=== PATIENT | male | born 1960 | race Caucasian/White ===

== ENCOUNTER 2020-02-27 00:59 | Outpatient (CLI) | payer MEDICARE, BC, SELFPAY ==
[2020-02-27 20:51] LABS: SARS-CoV-2 RNA PCR Negative
== END 2020-02-27 01:00 | disposition home or self-care (01) ==
LOC: ANHCOVIDDT 00:59
PROVIDERS: PCP Internal Medicine; Visit Provider Urology
DX: Z01.812 Encounter for preprocedural laboratory examination (principal); Z20.828 Contact with and (suspected) exposure to other viral communicable diseases
CPT/HCPCS: 87635; C9803; U0003

== ENCOUNTER 2020-02-29 01:27 | Day surgery (SDC) | payer MEDICARE, BC, SELFPAY ==
[2020-02-20 09:30] VITALS: BMI 33.7
--- NOTE | 2020-02-26 07:46 | P.HP_ITS ---
H&P: HPI History of Present Illness Date/Time: 02/26/20 07:46 Chief complaint: BPH Narrative: Jose R Hill is a 60 year old male with long-standing prostatism dating back approximately 10 years. Voiding symptoms have recently become refractory to tamsulosin. Cystoscopy shows lateral lobe hyperplasia without a significant median lobe. Rectal exam, by VITOR, demonstrates a 30-35 g prostate. After discussion of therapeutic options including TURP, Urolift and other minimally invasive procedures he elects for a Urolift. He is aware of the risk of this including, but not limited to, failure to correct his voiding symptoms, postoperative bleeding /urinary retention, adverse cardiopulmonary events. Review of Systems Cardiovascular: Cardiovascular: Denies chest pain, Denies lightheadedness, Denies palpitations and Denies dyspnea Respiratory: Respiratory: Denies dyspnea Gastrointestinal: Gastrointestinal: Denies diarrhea, Denies nausea and Denies vomiting Genitourinary: Genitourinary: Denies hematuria and Denies dysuria Endocrine: Endocrine: Denies palpitations PMFSH Social History Social History Smoking packs per day: 1 Smoking cigarettes per day: 20.0 Years smoked: 15 Smoking pack-years: 15.00 Smoking status: Former smoker Tobacco type: cigarettes Additional smoking assessment comments: QUIT 09/2018 Spiritual care concerns: No Meds Home Medications and Allergies Home Medications Medication Instructions Recorded Confirmed Type atorvastatin 40 mg PO DAILY 02/20/20 02/20/20 History carisoprodol 350 mg PO Q8H 02/20/20 02/20/20 History clopidogrel 75 mg PO DAILY 02/20/20 02/20/20 History dulaglutide [Trulicity] 1.5 mg SUBCUT WEEKLY 02/20/20 02/20/20 History fentanyl 100 mcg TRANSDERMAL Q72H 02/20/20 02/20/20 History glimepiride 4 mg PO BID 02/20/20 02/20/20 History hydrochlorothiazide 12.5 mg PO DAILY 02/20/20 02/20/20 History insulin glargine [Basaglar KwikPen 15 unit SUBCUT QPM 02/20/20 02/20/20 History U-100 Insulin] lisinopril 20 mg PO DAILY 02/20/20 02/20/20 History metformin 1,000 mg PO BID 02/20/20 02/20/20 History metoprolol tartrate 50 mg PO BID 02/20/20 02/20/20 History multivitamin 1 tablet PO DAILY 02/20/20 02/20/20 History nabumetone 750 mg PO BID 02/20/20 02/20/20 History oxycodone 10 mg PO Q4H 02/20/20 02/20/20 History tamsulosin 0.4 mg PO BID 02/20/20 02/20/20 History Allergies Allergy/AdvReac Type Severity Reaction Status Date / Time No Known Allergies Allergy Verified 02/20/20 09:31 Exam Const: General: no acute distress Resp: Effort & Inspection: normal respiratory effort GI: Inspection: non-distended GI Palp: No abdominal tenderness and No Guarding due to palpation present (GI) Auscultation: normal bowel sounds Assessment and Plan Assessment and plan (1) BPH loc w urin obs/LUTS: Code(s): N40.1 - Benign prostatic hyperplasia with lower urinary tract symptoms Status: Acute Assessment and Plan: * UroLift
[2020-02-29 09:50] VITALS: BP 119/78; PULSE 87; RESP 20; TEMP 36.1; O2SAT 94
[2020-02-29] MEDS: LACTATED RINGERS 1,000 ML 30 ML IV CONT (09:50)
--- NOTE | 2020-02-29 09:50 | WPDANESEPPF ---
Anes - Initial Pre Proc Eval Procedure: Operation Date: 02/29/20 11:30 Proposed Procedures p Urolift - Chalino Dacosta MD Date/Time: 02/29/20 09:50 Surgeon: Chalino Dacosta MD Pre Op Diagnosis: BPH Patient Data Age: 60 Gender: M Height: 5 ft 10 in Weight: 106.59 kg Allergies Allergy/AdvReac Type Severity Reaction Status Date / Time No Known Allergies Allergy Verified 02/20/20 09:31 Home Medications Medication Instructions Recorded Confirmed Type atorvastatin 40 mg PO DAILY 02/20/20 02/20/20 History carisoprodol 350 mg PO Q8H 02/20/20 02/20/20 History clopidogrel 75 mg PO DAILY 02/20/20 02/20/20 History dulaglutide [Trulicity] 1.5 mg SUBCUT WEEKLY 02/20/20 02/20/20 History fentanyl 100 mcg TRANSDERMAL Q72H 02/20/20 02/20/20 History glimepiride 4 mg PO BID 02/20/20 02/20/20 History hydrochlorothiazide 12.5 mg PO DAILY 02/20/20 02/20/20 History insulin glargine [Basaglar KwikPen 15 unit SUBCUT QPM 02/20/20 02/20/20 History U-100 Insulin] lisinopril 20 mg PO DAILY 02/20/20 02/20/20 History metformin 1,000 mg PO BID 02/20/20 02/20/20 History metoprolol tartrate 50 mg PO BID 02/20/20 02/20/20 History multivitamin 1 tablet PO DAILY 02/20/20 02/20/20 History nabumetone 750 mg PO BID 02/20/20 02/20/20 History oxycodone 10 mg PO Q4H 02/20/20 02/20/20 History tamsulosin 0.4 mg PO BID 02/20/20 02/20/20 History Patient hx anesthesia problems: none Family hx anesthesia problems: none PMFSH Past Medical History Medical History (Updated 02/29/20 @ 09:51 by Armond Grace MD) CAD (coronary artery disease) Diabetes Hyperlipidemia Hypertension BRENNON (obstructive sleep apnea) Social History Social History Smoking packs per day: 1 Smoking cigarettes per day: 20.0 Years smoked: 15 Smoking pack-years: 15.00 Smoking status: Former smoker Tobacco type: cigarettes Additional smoking assessment comments: QUIT 09/2018 Spiritual care concerns: No Anes - Eval Final PreProcedure Day of Procedure 02/29/20 09:50 Patient weight: obese Heart: regular rate and rhythm Lungs: decreased breath sounds Airway: Mallampati scale class II Neurological: alert and oriented Last oral intake: >/= 8 hours ASA classification: III Emergent: no Anesthetic plan: proceed Anesthesia type and monitoring: general GIVS and standard monitoring Informed Consent: The patient's anesthetic plan and its attendant risks and benefits were discussed with the patient/family/POA. Questions were solicited and answers provided to the satisfaction of the patient/family/POA.
[2020-02-29 09:58] LABS: Glucose Point of Care 177 (65-105)
[2020-02-29 10:05] VITALS: PULSE 80
[2020-02-29] MEDS: METOPROLOL TARTRATE INJ 5 MG/5 ML VIAL IV PUSH (10:05)
--- NOTE | 2020-02-29 11:28 | WPDHPUPDATE1 ---
History and Physical Update Update Date/Time: 02/29/20 11:28 History and Physical has been reviewed, including an updated exam of the patient. There are NO changes in the patient's condition. Risks, benefits, and alternatives have been discussed and questions answered. Patient agrees to proceed with procedure.
[2020-02-29] MEDS: ceFAZolin 2 GM/D5W 50 ML 2 GM/50 ML BAG IVPB (11:30)
[2020-02-29] MEDS: LIDOCAINE HCL 2% GEL UROJET 10 ML PKG MUCOUS MEM (11:41)
--- NOTE | 2020-02-29 11:58 | P.OP_ITS ---
Procedure Note - Detailed Date of procedure: 02/29/20 Pre-op diagnosis: BPH Post-op diagnosis: same Procedure performed: UroLift Description of procedure: The patient was prepped and draped in a routine fashion after the uneventful induction of a general LMA anesthetic. A 20F cystoscope was inserted into the bladder. The cystoscopy bridge was replaced with a UroLift delivery device. The first treatment site was the patient's right side approximately 1.5cm distal to the bladder neck. The distal tip of the delivery device was then angled laterally approximately 20 degrees at this position to compress the lateral lobe. The trigger was pulled, thereby deploying a needle containing the implant through the prostate. The needle was then retracted, allowing one end of the implant to be delivered to the capsular surface of the prostate. The implant was then tensioned to assure capsular seating and removal of slack monofilament. The device was then angled back toward midline and slowly advanced proximally (typically 3 to 4 mm) until cystoscopic verification of the monofilament being centered in the delivery bay. The urethral end piece was then affixed to the monofilament thereby tailoring the size of the implant. Excess filament was then severed. The delivery device was then re-advanced into the bladder. The delivery device was then replaced with cystoscope and bridge and the implant location and opening effect was conf irmed cystoscopically. The same procedure was then repeated on the left side, and two additional implants were delivered just proximal to the verumontanum, again one on right and one on left side of the prostate, following the same technique. Therefore, a total of 4 implants were delivered. A final cystoscopy was conducted first to inspect the location and state of each implant and second, to confirm the presence of a continuous anterior channel was present through the prostatic urethra with irrigation flow turned off. The bladder was then filled with 150 cc irrigation fluid to assist the patient in void trial after the procedure, and all instruments were removed. At this point the cystoscope was removed and the patient was taken to the PACU in good condition. Anesthesia: MAC Surgeon: Chalino Dacosta MD Estimated blood loss (mL): 0 Drains: No Packing: No Pathology: none sent Complications: No immediate complications Condition: stable Disposition: PACU
[2020-02-29 12:00] VITALS: BP 104/77; PULSE 67; RESP 12; O2SAT 97
[2020-02-29 12:30] VITALS: BP 110/72; PULSE 64; RESP 12
[2020-02-29 12:50] VITALS: BP 112/75; PULSE 65; RESP 12
[2020-02-29] MEDS: oxyCODONE HCL (*CRX) 5 MG TAB IR PO (12:51)
--- NOTE | 2020-02-29 13:06 | SUR.PHASEII ---
pPT URINATED AT 1230. 200 ML
== END 2020-02-29 13:00 | disposition home or self-care (01) ==
PROVIDERS: PCP Internal Medicine; Visit Provider Urology
PROC: 0T7D8DZ Dilation of Urethra with Intraluminal Device, Via Natural or Artificial Opening Endoscopic (ICD-10-PCS; CPT 52441; principal; 2020-02-29 11:30)
DX: N40.1 Benign prostatic hyperplasia with lower urinary tract symptoms (principal); Z79.02 Long term (current) use of antithrombotics/antiplatelets; Z79.4 Long term (current) use of insulin; Z79.84 Long term (current) use of oral hypoglycemic drugs; I25.10 Atherosclerotic heart disease of native coronary artery without angina pectoris; E11.9 Type 2 diabetes mellitus without complications; E78.5 Hyperlipidemia, unspecified; I10 Essential (primary) hypertension; G47.33 Obstructive sleep apnea (adult) (pediatric); Z87.891 Personal history of nicotine dependence; E66.9 Obesity, unspecified; Z68.32 Body mass index [BMI] 32.0-32.9, adult
CPT/HCPCS: C9740; A9270; J0690; J2250; J2704; J3010; J7120; L8699

== ENCOUNTER 2020-11-20 09:18 | Outpatient (CLI) | payer MEDICARE, BC, SELFPAY ==
--- NOTE | 2020-11-20 11:15 | NEURO_ITS ---
Impression: # Complains of numbness of hands. # Left moderate Carpal Tunnel Syndrome. # Right mild evolving Carpal Tunnel Syndrome. # No ulnar neuropathy. # Normal needle/EMG exam. Nerve Conduction Studies Anti Sensory Summary Table Stim Site NR Peak (ms) P-T Amp (?V) Site1 Site2 Delta-P (ms) Dist (cm) Mike (m/s) Left Median Anti Sensory (2-3nd Digit) Wrist 4.2 48.2 Wrist 2-3nd Digit 4.2 14.0 33 Wrist 4.8 34.7 Wrist 2-3nd Digit 4.2 14.0 33 Right Median Anti Sensory (2-3nd Digit) Wrist 3.7 67.1 Wrist 2-3nd Digit 3.7 14.0 38 Wrist 3.6 38.5 Wrist 2-3nd Digit 3.7 14.0 38 Left Radial Anti Sensory (Base 1st Digit) Wrist 2.1 10.8 Wrist Base 1st Digit 2.1 0.0 Right Radial Anti Sensory (Base 1st Digit) Wrist 2.1 14.5 Wrist Base 1st Digit 2.1 0.0 Left Ulnar Anti Sensory (5th Digit) Wrist 2.3 63.7 Wrist 5th Digit 2.3 14.0 61 Right Ulnar Anti Sensory (5th Digit) Wrist 2.5 68.7 Wrist 5th Digit 2.5 14.0 56 Motor Summary Table Stim Site NR Onset (ms) O-P Amp (mV) Site1 Site2 Delta-0 (ms) Dist (cm) Mike (m/s) Left Median Motor (Abd Poll Brev) Wrist 6.1 1.0 Elbow Wrist 5.5 32.0 58 Elbow 11.6 1.3 Right Median Motor (Abd Poll Brev) Wrist 4.0 3.0 Elbow Wrist 6.0 31.0 52 Elbow 10.0 4.2 Left Ulnar Motor (Abd Dig Minimi) Wrist 2.5 5.1 A Elbow Wrist 5.5 30.0 55 A Elbow 8.0 4.1 Right Ulnar Motor (Abd Dig Minimi) Wrist 2.7 5.1 A Elbow Wrist 5.4 29.0 54 A Elbow 8.1 4.1 F Wave Studies NR F-Lat (ms) L-R F-Lat (ms) Left Median (Mrkrs) (Abd Poll Brev) 34.38 1.52 Right Median (Mrkrs) (Abd Poll Brev) 32.86 1.52 Left Ulnar (Mrkrs) (Abd Dig Min) 30.08 1.54 Right Ulnar (Mrkrs) (Abd Dig Min) 31.62 1.54 EMG Side Muscle Nerve Root Ins Act Fibs Amp Dur Recrt Comment Right 1stDorInt Ulnar C8-T1 Nml Nml Nml Nml Nml Right Ext Indicis Radial (Post Int) C7-8 Nml Nml Nml Nml Nml Right Ext Digitorum Radial (Post Int) C7-8 Nml Nml Nml Nml Nml Right BrachioRad Radial C5-6 Nml Nml Nml Nml Nml Right PronatorTeres Median C6-7 Nml Nml Nml Nml Nml Right Abd Poll Brev Median C8-T1 Nml Nml Nml Nml Nml Left 1stDorInt Ulnar C8-T1 Nml Nml Nml Nml Nml Left Ext Indicis Radial (Post Int) C7-8 Nml Nml Nml Nml Nml Left Ext Digitorum Radial (Post Int) C7-8 Nml Nml Nml Nml Nml Left BrachioRad Radial C5-6 Nml Nml Nml Nml Nml Left PronatorTeres Median C6-7 Nml Nml Nml Nml Nml Left Abd Poll Brev Median C8-T1 Nml Nml Nml Nml Nml Right ABD Dig Min Ulnar C8-T1 Nml Nml Nml Nml Nml Left ABD Dig Min Ulnar C8-T1 Nml Nml Nml Nml Nml MTDD
== END 2020-11-20 09:19 | disposition home or self-care (01) ==
LOC: ANHNEURO 09:21
PROVIDERS: PCP Internal Medicine; Visit Provider Psychiatry & Neurology Neurology
DX: R20.0 Anesthesia of skin (principal); G56.03 Carpal tunnel syndrome, bilateral upper limbs
CPT/HCPCS: 95886; 95911

== ENCOUNTER 2021-01-17 14:04 | Outpatient (CLI) | payer MEDICARE, BC, SELFPAY ==
[2021-01-17 14:39] LABS: Anion Gap 13 mmol/L (8-16); Blood Urea Nitrogen 12 mg/dL (9-20); Calcium 9.6 mg/dL (8.4-10.2); Carbon Dioxide 28 mmol/L (22-30); Chloride 100 mmol/L (98-107); Estimated Glomerular Filt Rate > 60; Glucose 197 mg/dL (65-110); Potassium 4.5 mmol/L (3.4-5.0); Sodium 141 mmol/L (137-145)
== END 2021-01-17 14:05 | disposition home or self-care (01) ==
LOC: ANHSURGERY 14:09
PROVIDERS: Anesthesiology; PCP Internal Medicine; Visit Provider Orthopaedic Surgery
DX: E11.9 Type 2 diabetes mellitus without complications (principal); Z01.818 Encounter for other preprocedural examination
CPT/HCPCS: 36415; 80048

== ENCOUNTER 2021-01-23 01:17 | Day surgery (SDC) | payer MEDICARE, BC, SELFPAY ==
[2021-01-17 09:30] VITALS: BMI 31.8
--- NOTE | 2021-01-23 07:31 | WPDHPUPDATE1 ---
History and Physical Update Update Date/Time: 01/23/21 07:31 History and Physical has been reviewed, including an updated exam of the patient. There are NO changes in the patient's condition. Risks, benefits, and alternatives have been discussed and questions answered. Patient agrees to proceed with procedure.
[2021-01-23 12:05] VITALS: BP 120/70; PULSE 77; RESP 18; TEMP 36.3; O2SAT 97; BMI 30.6
[2021-01-23 12:09] LABS: Glucose Point of Care 134 mg/dl (65-105)
--- NOTE | 2021-01-23 12:09 | WPDANESEPPF ---
Anes - Initial Pre Proc Eval Procedure: Operation Date: 01/23/21 14:00 Proposed Procedures p Left Carpal Tunnel Release - José Miguel Atkins MD Date/Time: 01/23/21 12:09 Surgeon: José Miguel Atkins MD Pre Op Diagnosis: Lt Carpal Tunnel Syndrome Patient Data Age: 61 Gender: M Height: 1.78 m Weight: 100.7 kg Allergies Allergy/AdvReac Type Severity Reaction Status Date / Time No Known Allergies Allergy Verified 01/17/21 09:27 Home Medications Medication Instructions Recorded Confirmed Type Josiane PoncePen U-100 Insulin 15 unit SUBCUT QPM 02/20/20 01/17/21 History Trulicity 1.5 mg SUBCUT WEEKLY 02/20/20 01/17/21 History atorvastatin 40 mg PO HS 02/20/20 01/17/21 History clopidogrel 75 mg PO DAILY 02/20/20 01/17/21 History glimepiride 4 mg PO BID 02/20/20 01/17/21 History hydrochlorothiazide 12.5 mg PO DAILY 02/20/20 01/17/21 History lisinopril 20 mg PO DAILY 02/20/20 01/17/21 History metformin 1,000 mg PO BID 02/20/20 01/17/21 History metoprolol tartrate 50 mg PO BID 02/20/20 01/17/21 History multivitamin 1 tablet PO DAILY 02/20/20 01/17/21 History tamsulosin 0.4 mg PO BID 02/20/20 01/17/21 History sulfamethoxazole-trimethoprim 1 tablet PO Q12H #6 tablet 02/29/20 01/17/21 Rx dapagliflozin 10 mg tablet 10 mg PO DAILY 09/27/20 01/17/21 History carisoprodol 350 mg tablet 350 mg PO TID #90 tablet 01/06/21 01/17/21 Rx nabumetone 750 mg PO BID 01/17/21 01/17/21 History fentanyl 75 mcg/hr transdermal 1 patch TRANSDERMAL Q72H #10 ea 01/20/21 Rx patch MDD pain oxycodone 10 mg tablet 10 mg PO Q3-4H PRN #100 tablet 01/20/21 Rx Laboratory Tests 01/23/21 12:07 POC Capillary Glucose 134 mg/dl H mg/dl (65-105) Patient hx anesthesia problems: none Family hx anesthesia problems: none Results Review: All pre-operative results and documents have been reviewed as part of the pre-operative evaluation. [facility] Past Medical History Medical History Back pain DOI: 06/16/1983 CAD (coronary artery disease) Diabetes Hyperlipidemia Hypertension BRENNON (obstructive sleep apnea) Social History Social History Smoking packs per day: 1 Smoking cigarettes per day: 20.0 Years smoked: 45 Smoking pack-years: 45.00 Smoking status: Former smoker Tobacco type: cigarettes Smoking end date: 09/24/18 Additional smoking assessment comments: QUIT 09/2018 Alcohol intake: never Substance use: never Substance use type: does not use Living arrangements: alone Spiritual care concerns: No Anes - Eval Final PreProcedure Day of Procedure 01/23/21 12:09 Patient weight: obese Heart: regular rate and rhythm Lungs: clear to auscultation Airway: Mallampati scale class II Neurological: alert and oriented Last oral intake: >/= 8 hours ASA classification: III Emergent: no Anesthetic plan: proceed Anesthesia type and monitoring: general GIVS and standard monitoring Results Review: All pre-operative results and documents have been reviewed as part of the pre-operative evaluation. Informed Consent: The patient's anesthetic plan and its attendant risks and benefits were discussed with the patient/family/POA. Questions were solicited and answers provided to the satisfaction of the patient/family/POA.
[2021-01-23] MEDS: LACTATED RINGERS 1,000 ML 30 ML IV CONT (12:20)
[2021-01-23] MEDS: ACETAMINOPHEN 500 MG TABLET 1000 MG PO (12:29)
[2021-01-23] MEDS: KETOROLAC 15 MG/ML VIAL (*BKC) IV PUSH (12:32)
[2021-01-23] MEDS: ceFAZolin 2 GM/D5W 50 ML 2 GM/50 ML BAG IVPB (12:36)
[2021-01-23] MEDS: BUPIVACAINE HCL 0.5% PF 30 ML VIAL INFILTRATE (12:59)
[2021-01-23 13:27] VITALS: BP 126/65; PULSE 85; RESP 15; O2SAT 94
[2021-01-23 13:45] VITALS: BP 121/72; PULSE 62; RESP 16
[2021-01-23 14:00] VITALS: BP 133/87; PULSE 67; RESP 16
--- NOTE | 2021-01-23 17:49 | P.OP_ITS ---
Procedure Note - Detailed Date of Procedure 01/23/21 Pre-op Diagnosis Lt Carpal Tunnel Syndrome Post-op Diagnosis same Procedure Performed Left Carpal tunnel release Surgeon José Miguel Atkins MD Frame Polisher Corinne Snider PA-C Anesthesia general Indications Recurrent carpal tunnel symptoms. History of successful carpal tunnel release many years ago. Findings Significant scarring of the medial nerve in the carpal tunnel. The incision was extended proximal to allow for direct visualization and neuro lysis of the median nerve. Description of Procedure Operative details. After sedation was administer, the hand was prepped and draped in the usual sterile fashion. The proposed incision was marked using typical anatomic landmarks. 4ML 0.5% Marcaine was injected along the incision line and at the distal forearm. The limb was exsanguinated and the tourniquet inflated to 250 millimeters of mercury. A longitudinal incision was taken sharply. Dissection was brought down to the transverse carpal ligament. Under direct vision the ligament was incised sharply. The contents of the carpal canal were protected with a [place] elevator. Previous scar tissue and healed transverse carpal ligament were incised and gently dissected free. The median nerve was carefully freed from adhesions. The wound was closed with interrupted Prolene suture. A sterile bulky dressing was applied. Meticulous hemostasis was obtained prior to closure. Estimated Blood Loss 1 Drains No Pathology none sent Complications No immediate complications Condition stable Disposition PACU
== END 2021-01-23 14:05 | disposition home or self-care (01) ==
PROVIDERS: PCP Internal Medicine; Visit Provider Orthopaedic Surgery
PROC: (CPT 64721; principal; 2021-01-23 14:00)
DX: G56.02 Carpal tunnel syndrome, left upper limb (principal); I25.10 Atherosclerotic heart disease of native coronary artery without angina pectoris; I10 Essential (primary) hypertension; E11.9 Type 2 diabetes mellitus without complications; E78.5 Hyperlipidemia, unspecified; G47.33 Obstructive sleep apnea (adult) (pediatric); Z79.02 Long term (current) use of antithrombotics/antiplatelets; Z79.84 Long term (current) use of oral hypoglycemic drugs; Z87.891 Personal history of nicotine dependence; E66.9 Obesity, unspecified; Z68.30 Body mass index [BMI] 30.0-30.9, adult
CPT/HCPCS: 64721; 82948; A9270; J0690; J1885; J2250; J3010; J7120

== ENCOUNTER 2023-03-30 10:11 | Outpatient (CLI) | payer MEDICARE, BC, SELFPAY ==
--- NOTE | 2023-03-30 10:26 | ECG_ITS ---
Measurements Intervals [place] Rate: 66 P: 19 NE: 172 QRS: -42 QRSD: 98 T: 8 QT: 393 QTc: 412 Interpretive Statements SINUS RHYTHM MARKED LEFT AXIS DEVIATION [QRS AXIS < -30] BASELINE ARTIFACT NO PREVIOUS ECG AVAILABLE FOR COMPARISON Electronically Signed On 03-30-2023 13:34:42 INSOLE PRESSER by Mariana Michel M.D.
[2023-03-30 11:22] LABS: Anion Gap 10 mmol/L (8-16); Blood Urea Nitrogen 15 mg/dL (9-20); Calcium 9.4 mg/dL (8.4-10.2); Carbon Dioxide 29 mmol/L (22-30); Chloride 99 mmol/L (98-107); Estimated Glomerular Filt Rate > 60; Glucose 191 mg/dL (65-110); Potassium 4.6 mmol/L (3.4-5.0); Sodium 138 mmol/L (137-145)
== END 2023-03-30 10:12 | disposition home or self-care (01) ==
PROVIDERS: Anesthesiology; PCP Internal Medicine; Visit Provider Urology
DX: Z01.812 Encounter for preprocedural laboratory examination (principal); Z01.810 Encounter for preprocedural cardiovascular examination; I10 Essential (primary) hypertension; E11.9 Type 2 diabetes mellitus without complications
CPT/HCPCS: 36415; 80048; 93005

== ENCOUNTER 2023-04-01 04:30 | Day surgery (SDC) | payer MEDICARE, BC, SELFPAY ==
--- NOTE | 2023-03-25 17:08 | PM.IMHP ---
H&P: HPI History of Present Illness Date/Time: 03/25/23 17:08 Chief Complaint: Difficulty urinating Narrative: patient is a pleasant 63-year-old who has been seen in our practice since November 2019. He has outlet obstructive voiding symptoms secondary to BPH. He has undergone a prior unsuccessful your left in February 2020. He remains on both Flomax and finasteride with moderate relief of both obstructive and irritable symptoms. He has no history of recurrent hematuria recurrent urinary tract infections or upper tract obstruction. After discussion of options including other minimally invasive procedures and TURP, he has elected for the latter. He is aware the risk including, but not limited to, adverse cardiopulmonary events, postoperative hematuria, retrograde ejaculation and persistent or recurrent voiding symptoms down the road. Review of Systems Cardiovascular: Cardiovascular: Denies chest pain, Denies lightheadedness, Denies palpitations and Denies dyspnea Respiratory: Respiratory: Denies dyspnea Gastrointestinal: Gastrointestinal: Denies diarrhea, Denies nausea and Denies vomiting Genitourinary: Genitourinary: Denies hematuria and Denies dysuria Endocrine: Endocrine: Denies palpitations PMF Past Medical History Medical History Back pain DOI: 06/16/1983 CAD (coronary artery disease) Diabetes Hyperlipidemia Hypertension BRENNON (obstructive sleep apnea) Surgical History Surgical History History of carpal tunnel surgery of left wrist (~01/23/21) Social History Social History Years smoked: 1 Smoking status: Current every day smoker Tobacco type: cigars Smoking end date: 09/24/18 Additional smoking assessment comments: QUIT 09/2018 Alcohol intake: never Substance use: never Substance use type: does not use Lack of Transportation: No Lack of Food: Never True Current Housing: I Have Housing Concerned About Future Housing: No Difficulty Paying Gas/Electric Bills: YES Difficulty Paying for Meds: YES Currently Unemployed: No Education: Trade/Vocational Certificate Difficulty w/ Childcare or Family Care: No Living arrangements: alone Spiritual care concerns: No Meds Home Medications and Allergies Home Medications Medication Instructions Recorded Confirmed Type atorvastatin 40 mg tablet 40 mg PO HS 02/20/20 06/26/21 History clopidogrel 75 mg tablet 75 mg PO DAILY 02/20/20 06/26/21 History dulaglutide 1.5 mg/0.5 mL 1.5 mg subcut WEEKLY 02/20/20 06/26/21 History subcutaneous pen injector (Trulicity) glimepiride 4 mg tablet 4 mg PO BID 02/20/20 06/26/21 History hydrochlorothiazide 12.5 mg capsule 12.5 mg PO DAILY 02/20/20 06/26/21 History insulin glargine 100 unit/mL (3 15 unit subcut QPM 02/20/20 06/26/21 History mL) subcutaneous pen (Basaglar KwikPen U-100 Insulin) lisinopril 20 mg tablet 20 mg PO DAILY 02/20/20 06/26/21 History metformin 1,000 mg tablet 1,000 mg PO BID 02/20/20 06/26/21 History metoprolol tartrate 50 mg tablet 50 mg PO BID 02/20/20 06/26/21 History multivitamin 1 tablet PO DAILY 02/20/20 06/26/21 History tamsulosin 0.4 mg capsule 0.4 mg PO BID 02/20/20 06/26/21 History sulfamethoxazole 800 1 tablet PO Q12H #6 tabs 02/29/20 06/26/21 Rx mg-trimethoprim 160 mg tablet dapagliflozin propanediol 10 mg 10 mg PO DAILY 09/27/20 06/26/21 History tablet (Farxiga) hydrocodone bitartrate 10 mg 10 mg PO Q12H 06/25/22 History capsule, oral only, extended rel 12 hr nabumetone 750 mg tablet See Rx Instructions .Route 07/16/22 07/16/22 Rx .COMPLEX #60 tabs carisoprodol 350 mg tablet (Soma) 350 mg PO TID #90 tabs 11/16/22 Rx Allergies Allergy/AdvReac Type Severity Reaction Status Date / Time No Known Allergies Allergy Verified 06/25/22 14:05 Exam Const: General: no acute d
--- NOTE | 2023-03-29 10:07 | PC.NURSE ---
Report to the Outpatient Waiting Room, entrance under the green pavilion located off [facility], at time _0830_ on date _04/01/23_. Planned Procedure Time: 1030_. Time changes happen often and if your time is changed the preop area will call you the afternoon before. - You and your visitor will be asked to self-screen and do not enter if you have any COVID symptoms. - A mask is optional within the hospital at this time. Patients may have clear liquids (water, carbonated beverages, clear teas, apple juice) until 3 hours prior to surgery with a maximum of 20 ounces. - No food from midnight until time of surgery - Infants may have breast milk until 4 hours before surgery, formula 6 hours prior to surgery. - Children will be allowed to drink immediately following surgery. If applicable, please bring a bottle or sippy cup to assist with drinking. Juice, water, soda, and popsicles are readily available. For infants on formula, please bring formula the day of surgery. Pacifiers are allowed. Take the following medications with a SIP of water the morning of surgery: ___METOPROLOL,PAIN MEDICATION IF NEEDED DO NOT STOP ANY OF YOUR OTHER PRESCRIPTION MEDICATIONS PRIOR TO SURGERY ?EXCEPT THE FOLLOWING Medications to discontinue per physician MULTIVAMIN, STOP PLAVIX INSTRUCTED BY Date to take last dose Please no make-up, nail paraguayan, hairspray, perfume, deodorant, or body powder the day of surgery. No jewelry (including any body piercings) or valuables the day of surgery, leave them at home. Please take a shower or bath the night before, or the morning of, surgery with an antibacterial soap. Wear comfortable, loose fitting clothing. Children are encouraged to wear pajamas. - Jewelry must be removed prior to entering the operating room. Rings and piercings that are not removed may be cut off. - The hospital will not accept responsibility for valuables. - Please leave all valuables, including medications, at home the day of surgery. If you are going home after surgery, a licensed bicycle taxi driver must drive you home. - NO public transportation without another adult if you receive anesthesia. - We recommend that an adult stay with you for 24 hours following discharge. - We also recommend that you do not drive, make important decision, drink alcoholic beverages, or take any drugs that were not prescribed by your health care provider for at least 24 hours after your discharge time. For Pediatric surgeries, we recommend two adults accompany the child home. Follow any additional instructions given to you from your surgeon. If you or anyone in your household have experienced Covid symptoms in the past week, please notify your surgeon or the nurse liaison at the phone number below for possible testing. Telephone instructions given to _PATIENT__and asked if any additional questions and then verbalized understanding. Patient advised to call surgeon office or pre surgery nurse liaison [phone] if any additional questions.
[2023-03-29 10:28] VITALS: BMI 30.9
[2023-04-01] VITALS (17 sets, daily range): BP systolic 121–163; BP diastolic 71–99; PULSE 53–89; RESP 12–16; TEMP 36–36.4; O2SAT 93–99; BMI 30.2
--- NOTE | 2023-04-01 06:56 | WPDHPUPDATE1 ---
History and Physical Update Update Date/Time: 04/01/23 06:56 History and Physical has been reviewed, including an updated exam of the patient. There are NO changes in the patient's condition. Risks, benefits, and alternatives have been discussed and questions answered. Patient agrees to proceed with procedure.
[2023-04-01 09:17] LABS: Glucose Point of Care 236 mg/dl (65-105)
--- NOTE | 2023-04-01 09:35 | WPDANESEPPF ---
Anes - Initial Pre Proc Eval Procedure: Operation Date: 04/01/23 10:30 Proposed Procedures p Trans Urethral Resection Prostate - Chalino Dacosta MD Date/Time: 04/01/23 09:35 Surgeon: Chalino Dacosta MD Pre Op Diagnosis: BPH Patient Data Age: 63 Gender: M Height: 1.78 m Weight: 98 kg Last Vital Signs Temp 36.1 C L 04/01/23 09:28 Pulse 71 04/01/23 09:28 Resp 16 04/01/23 09:28 BP 144/87 H 04/01/23 09:28 Pulse Ox 95 04/01/23 09:28 O2 Del Method Room Air 04/01/23 09:28 Allergies Allergy/AdvReac Type Severity Reaction Status Date / Time No Known Allergies Allergy Verified 04/01/23 09:11 Home Medications Medication Instructions Recorded Confirmed Type atorvastatin 40 mg tablet 40 mg PO HS 02/20/20 04/01/23 History clopidogrel 75 mg tablet 75 mg PO DAILY 02/20/20 04/01/23 History glimepiride 4 mg tablet 4 mg PO BID 02/20/20 04/01/23 History hydrochlorothiazide 12.5 mg capsule 12.5 mg PO DAILY 02/20/20 04/01/23 History insulin glargine 100 unit/mL (3 24 unit subcut QPM 02/20/20 04/01/23 History mL) subcutaneous pen (Basaglar KwikPen U-100 Insulin) lisinopril 20 mg tablet 20 mg PO DAILY 02/20/20 04/01/23 History metformin 1,000 mg tablet 1,000 mg PO BID 02/20/20 04/01/23 History metoprolol tartrate 50 mg tablet 50 mg PO BID 02/20/20 04/01/23 History multivitamin 1 tablet PO DAILY 02/20/20 04/01/23 History tamsulosin 0.4 mg capsule 0.4 mg PO BID 02/20/20 04/01/23 History dapagliflozin propanediol 10 mg 10 mg PO DAILY 09/27/20 04/01/23 History tablet (Farxiga) nabumetone 750 mg tablet See Rx Instructions .Route 07/16/22 04/01/23 Rx .COMPLEX #60 tabs carisoprodol 350 mg tablet (Soma) 350 mg PO TID #90 tabs 11/16/22 04/01/23 Rx finasteride 5 mg tablet 5 mg PO HS 03/29/23 04/01/23 History oxycodone-acetaminophen 10 mg-325 1 tablet PO Q12H PRN Pain 03/29/23 04/01/23 History mg tablet (Percocet) pantoprazole 40 mg tablet,delayed 40 mg PO QAM 03/29/23 04/01/23 History release sildenafil 25 mg tablet (Viagra) 25 mg PO DAILY PRN IMPOTENCE 03/29/23 03/29/23 History trazodone 50 mg tablet 50 mg PO HS PRN Insomnia 03/29/23 04/01/23 History Laboratory Tests 04/01/23 09:09 POC Capillary Glucose 236 H mg/dl (65-105) Patient hx anesthesia problems: none Family hx anesthesia problems: none Results Review: All pre-operative results and documents have been reviewed as part of the pre-operative evaluation. [facility] Past Medical History Medical History Back pain DOI: 06/16/1983 CAD (coronary artery disease) Diabetes Hyperlipidemia Hypertension BRENNON (obstructive sleep apnea) Surgical History Surgical History History of carpal tunnel surgery of left wrist (~01/23/21) Social History Social History Years smoked: 1 Smoking status: Former smoker Tobacco type: cigars Smoking end date: 09/24/18 Additional smoking assessment comments: JAN 22, 2003, 6 CIGARS(SMALL) DAILY Alcohol intake: former Alcohol use details: STOPPED 1987 Substance use: never Substance use type: does not use Lack of Transportation: No Lack of Food: Never True Current Housing: I Have Housing Concerned About Future Housing: No Difficulty Paying Gas/Electric Bills: YES Difficulty Paying for Meds: YES Currently Unemployed: No Education: Trade/Vocational Certificate Difficulty w/ Childcare or Family Care: No Living arrangements: alone Spiritual care concerns: No Anes - Eval Final PreProcedure Day of Procedure 04/01/23 09:35 Patient weight: obese Heart: regular rate and rhythm Lungs: clear to auscultation Airway: Mallampati scale class II and other (edentulous) Neurological: alert and oriented Last oral intake: >/= 8 hours ASA classification: III Emergent: no Anesthetic plan: proc
[2023-04-01] MEDS: LACTATED RINGERS 1,000 ML 30 ML IV CONT (09:54)
--- NOTE | 2023-04-01 10:58 | W.PM.PROC2 ---
Procedure Note - Detailed Date of Procedure 04/01/23 Pre-op Diagnosis BPH Post-op Diagnosis Same Procedure Performed TURP Surgeon Chalino Dacosta MD Anesthesia General Description of Procedure The patient was brought to the operative suite where he is prepped and draped in routine sterile fashion while in the dorsal lithotomy position after the uneventful induction of a general LMA anesthetic. A 24 Brazilian resectoscope sheath was placed into his bladder. He had no urethral strictures. The patient had trilobar hyperplasia with a small median lobe. The bladder itself was endoscopically normal, showing no mucosal hyperemia, intravesical neoplasm or foreign bodies. There was a single, orthotopic ureteral orifice bilaterally. These orifices were identified and preserved throughout the remainder of the procedure. Attention was first turned to resection of the median lobe. This resection was undertaken from the bladder neck to the verumontanum and carried out until the transverse fibers of the bladder neck were identified. The left lateral lobe was then resected starting at the 6 o'clock position, working counter clockwise to the 12 o'clock position. Again, resection was carried out from the bladder neck to the verumontanum until the capsular fibers of the prostate were identified. The right lateral lobe was resected in a similar fashion starting at the 6 o'clock position working clockwise to the 12 o'clock position and carried out until the capsular fibers of the prostate were identified. Apical tissue was then circumferentially resected. All chips were evacuated from the bladder using an [employer] evacuator. Hemostasis was obtained with electric cautery. The ureteral orifices were again inspected and found to be without injury. Estimated blood loss throughout this procedure was 100cc. The patient was taken to recovery room having tolerated this well. Drains No Packing No Pathology Yes Complications No immediate complications
[2023-04-01] MEDS: fentaNYL CITRATE INJ (*CRX) 100 MCG/2 ML VIAL 25 MCG IV PUSH ×7 (11:12→11:40)
[2023-04-01] MEDS: HYDROmorphone HCL INJ (*CRX) 1 MG/ML SYR 0.5 MG IV PUSH ×4 (11:54→13:14)
[2023-04-01 11:56] LABS: Glucose Point of Care 194 mg/dl (65-105)
--- NOTE | 2023-04-01 13:36 | ADMGEN ---
This patient, Jose R Hill, was admitted to [facility] Surg Room 305-02. Patient/family oriented to hospital policies and general routines including ID bracelet, bed and alarms, visiting hours, pain management, procedures, bathroom and other care routines, personal items, smoking policy, room service/diet, and visiting hours. Information on how to activate the Rapid Response Team has been discussed. Patient/Family are encouraged to report perceived risks to care and to ask questions if they do not understand what they are told or what they should do.
[2023-04-01] MEDS: carisoprodoL (*CRX) 350 MG TABLET PO ×2 (14:50→19:43)
[2023-04-01] MEDS: HYDROcodone/acetaminophen (*CRX) 5-325 MG TABLET 1 TAB PO (14:50)
[2023-04-01 14:55] LABS: Glucose Point of Care 180 mg/dl (65-105)
[2023-04-01] MEDS: MORPHINE SULFATE (*CRX) 2 MG/ML INJ IV PUSH ×2 (17:14→21:11)
[2023-04-01 17:22] LABS: Glucose Point of Care 215 mg/dl (65-105)
[2023-04-01] MEDS: DOCUSATE SODIUM 100 MG CAPSULE PO (17:22)
[2023-04-01] MEDS: metFORMIN HCL 500 MG TABLET 1000 MG PO (17:22)
[2023-04-01] MEDS: GLIMEPIRIDE 2 MG TABLET 4 MG PO (17:22)
[2023-04-01] MEDS: ceFAZolin 1 GM/NS 50 ML 1 GM/50 ML BAG IVPB (17:23)
[2023-04-01] MEDS: INSULIN GLARGINE (*BKC) 100 UNITS/ML 24 UNITS SUB-Q (18:14)
[2023-04-01] MEDS: INSULIN ASPART (*BKC) 100 UNITS/ML SUB-Q (18:18)
[2023-04-01] MEDS: oxyCODONE/ACETAMINOPHEN (*CRX) 10-325 MG TABLET 1 TAB PO ×2 (18:19→22:19)
[2023-04-01 21:05] LABS: Glucose Point of Care 136 mg/dl (65-105)
[2023-04-01] MEDS: ATORVASTATIN 40 MG TABLET PO (22:19)
[2023-04-01] MEDS: METOPROLOL TARTRATE 50 MG TAB PO (22:19)
[2023-04-02 00:50] VITALS: BP 135/72; PULSE 68; RESP 16; TEMP 36.9; O2SAT 96
[2023-04-02] MEDS: oxyCODONE/ACETAMINOPHEN (*CRX) 10-325 MG TABLET 1 TAB PO ×3 (02:12→12:26)
[2023-04-02] MEDS: ceFAZolin 1 GM/NS 50 ML 1 GM/50 ML BAG IVPB (02:33)
[2023-04-02 04:00] VITALS: BP 134/84; PULSE 78; RESP 20; TEMP 36.4; O2SAT 97
[2023-04-02] MEDS: MORPHINE SULFATE (*CRX) 2 MG/ML INJ IV PUSH (05:23)
--- NOTE | 2023-04-02 06:33 | WPDUROPN2 ---
Progress Note: A&P Assessment and Plan (1) BPH loc w urin obs/LUTS: Code(s): N40.1 - Benign prostatic hyperplasia with lower urinary tract symptoms Status: Acute Assessment and Plan: Doing well POD #1 Stop CBI and voiding trial later today if urine remains clear Subjective Subjective Date/Time Seen: 04/02/23 06:33 Interval history: C/O sore neck Review of Systems Cardiovascular: Cardiovascular: Denies chest pain, Denies lightheadedness, Denies palpitations and Denies dyspnea Respiratory: Respiratory: Denies dyspnea Gastrointestinal: Gastrointestinal: Denies diarrhea, Denies nausea and Denies vomiting Genitourinary: Genitourinary: Denies hematuria and Denies dysuria Endocrine: Endocrine: Denies palpitations Exam Const: General: no acute distress Resp: Effort & Inspection: normal respiratory effort GI: Inspection: non-distended GI Palp: No abdominal tenderness and No Guarding due to palpation present (GI) Auscultation: normal bowel sounds Urinary Catheter: Urinary Catheter: patent and draining and urine clear Objective Data Vital Signs Vital Signs: Vital Signs - 24 hr 04/01/23 09:28 04/01/23 11:02 04/01/23 11:15 Temperature 97 F L 97.2 F L Pulse Rate 71 53 L 59 L Respiratory Rate 16 13 14 Blood Pressure 144/87 H 141/90 H 140/96 H Pulse Oximetry 95 99 99 Oxygen Delivery Room Air Simple Face Mask Room Air Oxygen Flow Rate 6 04/01/23 11:30 04/01/23 11:45 04/01/23 12:00 Temperature Pulse Rate 63 58 L 60 Respiratory Rate 14 14 14 Blood Pressure 163/99 H 142/94 H 129/90 Pulse Oximetry 99 94 94 Oxygen Delivery Room Air Room Air Room Air Oxygen Flow Rate 04/01/23 12:40 04/01/23 12:30 04/01/23 12:15 Temperature Pulse Rate 60 60 Respiratory Rate 16 16 15 Blood Pressure 131/84 129/92 H 142/83 H Pulse Oximetry 96 96 94 Oxygen Delivery Room Air Room Air Room Air Oxygen Flow Rate 04/01/23 13:09 04/01/23 13:22 04/01/23 13:40 Temperature 96.8 F L Pulse Rate 63 60 66 Respiratory Rate 16 12 16 Blood Pressure 151/85 H 121/71 136/89 Pulse Oximetry 95 93 96 Oxygen Delivery Room Air Room Air Oxygen Flow Rate 04/01/23 13:55 04/01/23 14:25 04/01/23 15:25 Temperature 97.1 F L 97.4 F L 97.5 F L Pulse Rate 65 66 83 Respiratory Rate 14 16 16 Blood Pressure 151/84 H 133/81 123/91 H Pulse Oximetry 96 96 95 Oxygen Delivery Oxygen Flow Rate 04/01/23 13:40 04/01/23 20:00 04/01/23 22:19 Temperature 97.1 F L Pulse Rate 89 89 Respiratory Rate 16 Blood Pressure 128/81 Pulse Oximetry 96 Oxygen Delivery Room Air Oxygen Flow Rate 04/02/23 00:50 Temperature 98.4 F Pulse Rate 68 Respiratory Rate 16 Blood Pressure 135/72 Pulse Oximetry 96 Oxygen Delivery Oxygen Flow Rate Intake/Output Intake/Output: Intake & Output 03/30/23 03/31/23 04/01/23 04/02/23 23:59 23:59 23:59 23:59 Intake Total 6260 50 Output Total 7550 2500 Balance -1290 -8190 Meds/Results Medications: Active Medications Generic Name Dose Route Start Last Admin Trade Name Freq PRN Reason Stop Dose Admin Atorvastatin Calcium 40 mg 04/01/23 21:00 04/01/23 22:19 Atorvastatin 40 Mg Tablet PO 40 mg HS RUTHIE Administration Carisoprodol 350 mg 04/01/23 13:25 04/01/23 19:43 Carisoprodol (*Crx) 350 Mg Tablet PO 350 mg TID RUTHIE Administration Cephalexin HCl 500 mg 04/02/23 09:00 Cephalexin 500 Mg Capsule PO QID RUTHIE Dextrose 12.5 gm 04/01/23 11:06 Dextrose 50% 25 Gm/50 Ml Syringe IV PUSH PRN PRN Hypoglycemia Protocol Docusate Sodium 100 mg 04/01/23 17:00 04/01/23 17:22 Docusate Sodium 100 Mg Capsule PO 100 mg BID RUTHIE Administration Empagliflozin 25 mg 04/02/23 09:00 Empagliflozin 25 Mg Tablet PO 05/02/23 08:59 DAILY RUTHIE Fentanyl Citrate 25 mcg 04/01/23 09:35 04/01/23 11:40 Fentanyl Citrate Inj (*Crx) 100 Mcg/2 Ml Vial IV PUSH 25 mcg Q2M PRN Administrat
[2023-04-02 06:34] LABS: Hemoglobin 15.1 g/dL (14.0-18.0)
[2023-04-02 06:36] LABS: Anion Gap 9 mmol/L (8-16); Blood Urea Nitrogen 11 mg/dL (9-20); Calcium 9.2 mg/dL (8.4-10.2); Carbon Dioxide 26 mmol/L (22-30); Chloride 103 mmol/L (98-107); Estimated CRCL calculation 144 ml/min; Estimated Glomerular Filt Rate > 60; Glucose 168 mg/dL (65-110); Potassium 4.3 mmol/L (3.4-5.0); Sodium 138 mmol/L (137-145)
[2023-04-02 07:49] LABS: Glucose Point of Care 192 mg/dl (65-105)
[2023-04-02] MEDS: GLIMEPIRIDE 2 MG TABLET 4 MG PO (08:36)
[2023-04-02] MEDS: CEPHALEXIN 500 MG CAPSULE PO ×2 (08:36→12:16)
[2023-04-02] MEDS: metFORMIN HCL 500 MG TABLET 1000 MG PO (08:36)
[2023-04-02] MEDS: EMPAGLIFLOZIN 25 MG TABLET PO (08:36)
[2023-04-02 08:37] VITALS: PULSE 72
[2023-04-02] MEDS: METOPROLOL TARTRATE 50 MG TAB PO (08:37)
[2023-04-02] MEDS: PANTOPRAZOLE 40 MG TABLET PO (08:37)
[2023-04-02] MEDS: lisinopriL 20 MG TABLET PO (08:37)
[2023-04-02] MEDS: MULTIVITAMINS THERAPEUTIC TAB (*BKC) 1 TABLET PO (08:37)
[2023-04-02] MEDS: carisoprodoL (*CRX) 350 MG TABLET PO ×2 (08:37→12:16)
[2023-04-02] MEDS: hydroCHLOROthiazide 12.5 MG CAPSULE PO (08:44)
[2023-04-02] MEDS: DOCUSATE SODIUM 100 MG CAPSULE PO (08:44)
[2023-04-02 09:36] VITALS: BP 135/80; PULSE 95; RESP 18; TEMP 36.6; O2SAT 96
[2023-04-02 11:55] LABS: Glucose Point of Care 182 mg/dl (65-105)
--- NOTE | 2023-04-02 11:58 | PM.DS ---
DS: Admitting Diagnosis Discharge Date 04/02/2023 Admitting Diagnosis BPH DS: Discharge Diagnosis Discharge Diagnosis (1) BPH loc w urin obs/LUTS: Code(s): N40.1 - Benign prostatic hyperplasia with lower urinary tract symptoms Status: Acute DS: Summary Hospital Course Hospital Course: This patient with longstanding prostatism refractory for medical management was admitted on the morning of his planned TURP. The procedure was undertaken on that same day in an uneventful fashion. His post-operative course was, likewise, uneventful. On the evening of the procedure he was tolerating a diet. On POD#1 his urine was clear on CBI. The urine remained clear and, therefore, the catheter was removed late morning. The patient was observed for several hours, until he demonstrated he could void effectively without significant hematuria. He was discharged with careful instruction on limiting physical activity x2 weeks and plans to f/ in 2-3 weeks. At discharge he was comfortable and tolerating a diet. Time Spent with Patient Time attestation: Total time spent providing and/or coordinating discharge services: DS: Data Data Completed and Pending Completed studies during hospitalization: Pending at discharge 04/01/23 10:24 Surgical [PTH] Routine Labs on day of discharge: Labs from last 24 hours 04/02/23 04/02/23 04/02/23 11:48 07:46 06:00 Hgb 15.1 Hct 46.0 Sodium 138 Potassium 4.3 Chloride 103 Carbon Dioxide 26 Anion Gap 9 BUN 11 Creatinine 0.50 L Estim Creat Clear Calc 144 Estimated GFR > 60 Glucose 168 H POC Capillary Glucose 182 H 192 H Calcium 9.2 04/01/23 04/01/23 04/01/23 20:25 17:08 14:50 Hgb Hct Sodium Potassium Chloride Carbon Dioxide Anion Gap BUN Creatinine Estim Creat Clear Calc Estimated GFR Glucose POC Capillary Glucose 136 H 215 H 180 H Calcium Discharge Plan Discharge Patient Disposition: Home, Self-Care Discharge Instructions: 1) Activity: No lifting/straining >15lbs. x2 weeks. 2) Diet: Resume normal pre-admission diet. 3) Follow-up: 2-3 weeks / call office for appointment ([phone]). Patient Instructions: Clopidogrel (By mouth) Stand Alone Forms: General Discharge Instructions Discharge Orders: Discharge Order (Routine); Ordered 04/02/23 Ordered By: Chalino Dacosta Discharge Medications: New cephalexin 500 mg capsule 500 mg PO Q8H Qty: 9 0RF oxycodone-acetaminophen 10-325 mg tablet 1 tablet PO Q6H PRN (Reason: pain) Qty: 12 0RF docusate sodium [Colace] 100 mg capsule 100 mg PO DAILY Qty: 30 0RF Continued Farxiga 10 mg tablet 10 mg PO DAILY trazodone 50 mg Tablet 50 mg PO HS PRN (Reason: Insomnia) oxycodone-acetaminophen [Percocet] 10-325 mg Tablet 1 tablet PO Q12H PRN (Reason: Pain) pantoprazole 40 mg Tablet,Delayed Release (Dr/Ec) 40 mg PO QAM multivitamin Tablet 1 tablet PO DAILY atorvastatin 40 mg tablet 40 mg PO HS lisinopril 20 mg tablet 20 mg PO DAILY metformin 1,000 mg tablet 1,000 mg PO BID glimepiride 4 mg tablet 4 mg PO BID metoprolol tartrate 50 mg tablet 50 mg PO BID hydrochlorothiazide 12.5 mg capsule 12.5 mg PO DAILY insulin glargine [Basaglar KwikPen U-100 Insulin] 100 unit/mL (3 mL) insulin pen 24 unit SUBCUT QPM carisoprodol [Soma] 350 mg tablet 350 mg PO TID Qty: 90 0RF Held nabumetone 750 mg tablet See Rx Instructions .ROUTE .COMPLEX Qty: 60 11RF Hold Instructions: Resume on 04/06/23. Dose Instruction: TAKE 1 TABLET BY MOUTH TWICE DAILY Rx Instructions: TAKE 1 TABLET BY MOUTH TWICE DAILY sildenafil [Viagra] 25 mg Tablet 25 mg PO DAILY PRN (Reason: IMPOTENCE) Hold Instructions: Resume on 04/06/23. Rx Instructions: administer 30 minutes to 4 hours before activity clopi
--- NOTE | 2023-04-02 13:21 | WPDANESPN ---
Anes - Prog Note Post-Op Date/Time: 04/02/23 13:21 Vital Signs: Last Vital Signs Temp 36.6 C 04/02/23 09:36 Pulse 95 04/02/23 09:36 Resp 18 04/02/23 09:36 BP 135/80 04/02/23 09:36 Pulse Ox 96 04/02/23 09:36 O2 Del Method Room Air 04/02/23 08:35 O2 Flow Rate 6 04/01/23 11:02 Pain Score (VAS): 0 I/O: Intake & Output 04/01/23 04/02/23 04/02/23 23:59 07:59 15:59 Intake Total 790 300 600 Output Total 550 2500 Balance 240 -2200 600 Laboratory Tests 04/02/23 06:00 04/02/23 06:00 04/01/23 04/01/23 04/01/23 14:50 17:08 20:25 Hgb Hct Sodium Potassium Chloride Carbon Dioxide Anion Gap BUN Creatinine Estim Creat Clear Calc Estimated GFR Glucose POC Capillary Glucose 180 H 215 H 136 H Calcium 04/02/23 04/02/23 04/02/23 06:00 07:46 11:48 Hgb 15.1 Hct 46.0 Sodium 138 Potassium 4.3 Chloride 103 Carbon Dioxide 26 Anion Gap 9 BUN 11 Creatinine 0.50 L Estim Creat Clear Calc 144 Estimated GFR > 60 Glucose 168 H POC Capillary Glucose 192 H 182 H Calcium 9.2 Patient Feedback: Patient satisfied with anesthetic care.
== END 2023-04-02 13:30 | disposition home or self-care (01) ==
LOC: ANHSURGERY 11:16 → ANH3MEDSUR 13:28
PROVIDERS: PCP Internal Medicine; Visit Provider Urology
PROC: 0VT08ZZ Resection of Prostate, Via Natural or Artificial Opening Endoscopic (ICD-10-PCS; CPT 52601; principal; 2023-04-01 10:30)
DX: N40.1 Benign prostatic hyperplasia with lower urinary tract symptoms (principal); N13.8 Other obstructive and reflux uropathy; N41.1 Chronic prostatitis; I25.10 Atherosclerotic heart disease of native coronary artery without angina pectoris; E11.9 Type 2 diabetes mellitus without complications; E78.5 Hyperlipidemia, unspecified; I10 Essential (primary) hypertension; G47.33 Obstructive sleep apnea (adult) (pediatric); Z87.891 Personal history of nicotine dependence; Z79.02 Long term (current) use of antithrombotics/antiplatelets; Z79.85 Long-term (current) use of injectable non-insulin antidiabetic drugs; Z79.84 Long term (current) use of oral hypoglycemic drugs; Z79.4 Long term (current) use of insulin
CPT/HCPCS: 52601; 36415; 80048; 82948; 85014; 85018; 88305; A9270; C1757; J0690; J1170; J1815; J2250; J2270; J2405; J2704; J3010; J7120